=== PATIENT | female | born 1960 | race Caucasian/White ===

== ENCOUNTER 2017-02-25 16:39 | Outpatient (CLI) | payer OTHER ==
[2015-06-05 22:27] VITALS: BP 98/70
[2017-02-25 17:11] LABS: eGFR (African) > 60; eGFR (Non-African) > 60
== END 2017-02-25 16:45 ==
LOC: LAB 16:39
PROVIDERS: ATTEND Internal Medicine Endocrinology, Diabetes & Metabolism
DX: E11.65 Type 2 diabetes mellitus with hyperglycemia (principal); Z79.4 Long term (current) use of insulin; E03.9 Hypothyroidism, unspecified
CPT/HCPCS: 36415; 80053; 84439; 84443